=== PATIENT | male | born 1940 | race Two or more races ===

== ENCOUNTER → 2020-04-25 | Outpatient (CLI) | payer MEDICARE ==
[2020-04-25] VITALS (7 sets, daily range): BP systolic 88–136; BP diastolic 44–61
[~2020-04-25] MED LIST: MVI in SODIUM CHLORIDE 0.9% 1,000 ML IVB ONE; MVI in SODIUM CHLORIDE 0.9% 1,010 ML ONE
--- NOTE | 2020-04-25 11:14 | NUR ---
CLINIC PT ARRIVED TO THE [facility] WITH MD ORDERS FOR IV HYDRATION. A/OX4, IN HOME WHEELCHAIR WITH CAREGIVER DIRECTOR OF TEACHING AND LEARNING. BREATING IS EVEN AND UNLABORED.
--- NOTE | 2020-04-25 11:25 | NUR ---
IV insertion IV access obtained, via clean sterile technique by inserting 22 gauge catheter at RAC after 1 attempt(s). IV secured properly. No trauma to site. Patient tolerated procedure well. NOTE INSERTED BY JADON STOVALL
--- NOTE | 2020-04-25 14:54 | NUR ---
IV removal IV DC'd with sterile technique, catheter fully intact. Pressure dressing applied to site. Patient tolerated procedure well. Discharged with aftercare instructions per MD. NOTE: REMOVED BY CHUCHO STOVALL
--- NOTE | 2020-04-25 14:56 | NUR ---
Discharge Instructions See e-MAR for any mediations given with this visit. Patient education given on disease process. Patient verbalized understanding. Previous labs reviewed. Patient discharged in stable condition with after care instructions and follow up appointment. NOTE MVI IV [id number] ADMIN BY JADON STOVALL
== END | disposition home or self-care (01) ==
LOC: CHF HDHVI 11:11
PROVIDERS: ATTEND Internal Medicine Cardiovascular Disease
DX: E86.0 Dehydration (principal); R94.4 Abnormal results of kidney function studies
CPT/HCPCS: 36415; 82565; 96365; 96366; G0463; J3411; J3475

== ENCOUNTER → 2020-04-27 | Outpatient (CLI) | payer MEDICARE ==
[~2020-04-27] MED LIST changes: +IOHEXOL 350 MG/ML 100ML IJ ONE; -MVI in SODIUM CHLORIDE 0.9% 1,000 ML IVB ONE; -MVI in SODIUM CHLORIDE 0.9% 1,010 ML ONE; +READI-CAT 2 (BARIUM SULF)(VANILLA SMOOTHIE) 450ML ONE
[2020-04-27 09:05] VITALS: BP 109/53
--- NOTE | 2020-04-27 09:05 | NUR ---
CLINIC PT ARRIVED TO THE [facility] FOR CT ABD/PEL WITH IV AND ORAL CONTRAST. A/OX3, IN HOME WHEELCHAIR. PT IS ACCOMPANIED BY HIS CAREGIVER WHICH IS ALSO HIS RELIGION DEPARTMENT CHAIR. BREATHING IS EVEN AND UNLABORED. Addendum: 04/27/20 at 0952 by CHUCHO DE LEÓN RN [facility] L[facility]EL ON 04/25/20 0.53
--- NOTE | 2020-04-27 09:19 | NUR ---
IV insertion IV access obtained, via clean sterile technique by inserting 22 gauge catheter at RFA after 1 attempt(s). IV secured properly. No trauma to site. Patient tolerated procedure well. NOTE INSERTED BY CHUCHO STOVALL
[2020-04-27 09:38] VITALS: BP 110/40
--- NOTE | 2020-04-27 09:38 | NUR ---
Discharge Instructions See e-MAR for any mediations given with this visit. Patient education given on disease process. Patient verbalized understanding. Previous labs reviewed. Patient discharged in stable condition with after care instructions and follow up appointment. PT ADVISED TO INCREASE FLUIDS FOR THE NEXT 24 HOURS.
== END | disposition home or self-care (01) ==
LOC: Rad HDHVI 09:06
PROVIDERS: ATTEND Internal Medicine Cardiovascular Disease
DX: N40.0 Benign prostatic hyperplasia without lower urinary tract symptoms (principal); K76.89 Other specified diseases of liver; J98.11 Atelectasis; J90 Pleural effusion, not elsewhere classified; I70.0 Atherosclerosis of aorta; N28.1 Cyst of kidney, acquired; K57.30 Diverticulosis of large intestine without perforation or abscess without bleeding
CPT/HCPCS: 71260; 74177; G0463; Q9967

== ENCOUNTER → 2020-05-01 | Outpatient (CLI) | payer MEDICARE | END | disposition home or self-care (01) | LOC: Rad HDHVI 12:47 | PROVIDERS: ATTEND Internal Medicine Cardiovascular Disease | DX: I08.8 Other rheumatic multiple valve diseases (principal); R07.9 Chest pain, unspecified; I48.0 Paroxysmal atrial fibrillation | CPT/HCPCS: 93306 ==

== ENCOUNTER → 2020-05-23 | Outpatient (CLI) | payer MEDICARE ==
[~2020-05-23] VITALS: Ht 165.1 cm; Wt 62.6 kg
[~2020-05-23] MED LIST changes: +ADENOSINE 53 MG in GIVE UN-DILUTED 0 ML IV ONE; +ADENOSINE 90 MG/30 ML INJ IV ONE; -IOHEXOL 350 MG/ML 100ML IJ ONE; -READI-CAT 2 (BARIUM SULF)(VANILLA SMOOTHIE) 450ML ONE
== END | disposition home or self-care (01) ==
LOC: Rad HDHVI 13:02
PROVIDERS: ATTEND Internal Medicine Cardiovascular Disease
DX: I99.8 Other disorder of circulatory system (principal); I10 Essential (primary) hypertension
CPT/HCPCS: 78452; 93005; 96374; 96375; A9500; J0153